=== PATIENT | female | born 1990 | race African-American/Black ===

== ENCOUNTER 2019-07-18 07:31 | Emergency (ER) | payer OTHER ==
[~2019-07-18] VITALS: Ht 160 cm; Wt 63.0 kg
[2019-07-18 07:41] VITALS: BP 122/76
== END 2019-07-18 09:55 | disposition left against medical advice (07) ==
LOC: ER 07:31
DX: R10.9 Unspecified abdominal pain (principal); Z53.21 Procedure and treatment not carried out due to patient leaving prior to being seen by health care provider